=== PATIENT | male | born 1945 | race Caucasian/White ===

== ENCOUNTER → 2018-05-22 07:47 | Outpatient (CLI) | payer MEDICARE, OTHER, SELFPAY ==
--- NOTE | 2018-05-22 | CI_ITS ---
Cerebrovascular Exam Indications: 780.4 Dizziness and giddiness. IMPRESSIONS 1. The bilateral vertebral arteries are patent with normal antegrade flow. 2. Study suggests 20-49% stenosis involving the right internal carotid artery. 3. Study suggests less than 20% stenosis involving the left internal carotid artery. History: Risk factors: Hypertension. Diabetes mellitus. Carotid duplex study. Complete study and Doppler flow study including spectral analysis, color and zhang scale imaging. Height: Height: 188cm. Height: 74in. Weight: Weight: 101.2kg. Weight: 222.5lb. Body mass index: BMI: 28.6kg/m^2. Body surface area: BSA: 2.32m^2. Location: Vascular laboratory. Patient status: Outpatient. Tables: Arterial flow: + +--------+--------+ Location V sys V ed + +--------+--------+ Right CCA - proximal 88cm/s 18.2cm/s + +--------+--------+ Right CCA - distal 64.7cm/s 20.1cm/s + +--------+--------+ Right ECA 67.8cm/s -------- + +--------+--------+ Right ICA - proximal 47.1cm/s 17cm/s + +--------+--------+ Right ICA - mid 73.2cm/s 30cm/s + +--------+--------+ Right ICA - distal 56.5cm/s 19.6cm/s + +--------+--------+ Right vertebral 44.7cm/s -------- + +--------+--------+ Left CCA - proximal 82.5cm/s 16.7cm/s + +--------+--------+ Left CCA - distal 46.2cm/s 15.2cm/s + +--------+--------+ Left ECA 89.4cm/s -------- + +--------+--------+ Left ICA - proximal 50.1cm/s 20.6cm/s + +--------+--------+ Left ICA - mid 75.6cm/s 27cm/s + +--------+--------+ Left ICA - distal 79.6cm/s 25.5cm/s + +--------+--------+ Left vertebral 31.9cm/s -------- + +--------+--------+ Velocity ratios: + + + + + + Right, V sys Right, V ed Left, V sys Left, V ed + + + + + + Max ICA/dist CCA 1.13 1.49 1.72 1.78 + + + + + + (Report amended ) Electronically signed by: Hank Melissa [id number]
== END ==
PROVIDERS: PCP Family Medicine; Visit Provider Nurse Practitioner Family
DX: R42 Dizziness and giddiness (principal); I10 Essential (primary) hypertension; E78.5 Hyperlipidemia, unspecified; I25.10 Atherosclerotic heart disease of native coronary artery without angina pectoris; H53.8 Other visual disturbances
CPT/HCPCS: 93880

== ENCOUNTER 2018-06-08 15:05 | Emergency (ER) | payer MEDICARE, OTHER, SELFPAY ==
[2018-06-08 15:10] VITALS: BP 146/84; PULSE 77; RESP 22; TEMP 36.9; O2SAT 100; BMI 28.8
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
--- NOTE | 2018-06-08 15:39 | PC.NURSE ---
1508- TRAUMA ALERT CALLED 1515- TRAUMA ALERT CANCELLED PER DR COTTER
--- NOTE | 2018-06-08 15:40 | PC.NURSE ---
PT TO CT
[2018-06-08 15:52] LABS: Anion Gap 12.5 mEq/L (5-15); Blood Urea Nitrogen 25 mg/dL (7-18); Calcium 9.6 mg/dL (8.5-10.1); Carbon Dioxide 28 mmol/L (21.0-32.0); Chloride 101 mmol/L (98-107); Creatinine Clearance Estimated 77 mL/min (50-200); Creatinine,Serum 1.29 mg/dL (0.70-1.30); Estimated Glomerular Filt Rate 55 ml/min (>60); GFR (African American) 67 ML/MIN (>60); Glucose 127 mg/dL (74-106); Potassium 3.5 mmoL/L (3.5-5.1); Sodium 138 mmol/L (136-145)
[2018-06-08 16:06] LABS: Basophils % 0.3 % (0.1-2.0); Eosinophils # 0.1 K/mm3 (0.0-0.4); Eosinophils % 0.9 % (0.1-12.0); Hematocrit 46.8 % (42.0-52.0); Hemoglobin 15.8 g/dL (14.1-18.0); Lymphocytes # 1.6 K/mm3 (0.7-4.5); Lymphocytes % 13.1 % (10-50); Mean Corpuscular HGB Conc 33.8 g/dL (31.8-35.4); Mean Corpuscular Hemoglobin 30.2 pg (27.0-31.2); Mean Corpuscular Volume 89.3 fl (80-94); Mean Platelet Volume 7.1 fl (7.4-10.4); Monocytes # 0.5 K/mm3 (0.1-1.0); Monocytes % 3.9 % (1.7-9.3); Neutrophils # 10.1 K/mm3 (1.8-7.8); Neutrophils % 81.8 % (37.0-80.0); Platelet Count 257 K/mm3 (142-424); Red Blood Count 5.24 M/mm3 (4.60-6.20); White Blood Count 12.4 K/mm3 (4.8-10.8)
[2018-06-08 16:10] VITALS: BP 139/83; PULSE 66; O2SAT 96
[2018-06-08 16:42] VITALS: BP 147/75; PULSE 61; O2SAT 97
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
[2018-06-08 17:02] VITALS: BP 145/83; PULSE 64; O2SAT 97
[2018-06-08 17:34] VITALS: BP 126/66; PULSE 75; RESP 18; TEMP 36.6; O2SAT 100
[2018-06-08 17:35] VITALS: BP 139/83; PULSE 69; O2SAT 96
== END 2018-06-08 17:46 | disposition home or self-care (01) ==
PROVIDERS: Emergency Provider Emergency Medicine; PCP Family Medicine
DX: S40.011A Contusion of right shoulder, initial encounter (principal); S10.93XA Contusion of unspecified part of neck, initial encounter; S01.312A Laceration without foreign body of left ear, initial encounter; V86.05XA Driver of 3- or 4- wheeled all-terrain vehicle (ATV) injured in traffic accident, initial encounter; Y92.488 Other paved roadways as the place of occurrence of the external cause; S61.412A Laceration without foreign body of left hand, initial encounter
CPT/HCPCS: 12011; 70450; 71045; 71275; 72125; 72170; 73020; 74177; 80048; 85025; 99283; Q9967

== ENCOUNTER → 2018-06-09 16:04 | Outpatient (CLI) | payer MEDICARE, OTHER, SELFPAY ==
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
== END ==
PROVIDERS: PCP Family Medicine; Visit Provider Nurse Practitioner Family
DX: S89.92XA Unspecified injury of left lower leg, initial encounter (principal)
CPT/HCPCS: 73562

== ENCOUNTER 2018-07-20 08:30 | Outpatient (RCR) | payer MEDICARE, OTHER, SELFPAY ==
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
== END 2018-07-20 08:35 | disposition home or self-care (01) ==
LOC: PT 08:30
PROVIDERS: Visit Provider Nurse Practitioner Family
DX: S13.4XXD Sprain of ligaments of cervical spine, subsequent encounter (principal); M54.2 Cervicalgia
CPT/HCPCS: 97010; 97014; 97110; 97163; G0283

== ENCOUNTER 2019-11-15 17:56 | Observation (INO) | payer MEDICARE, OTHER, SELFPAY ==
[2019-11-15] VITALS (8 sets, daily range): BP systolic 111–150; BP diastolic 54–85; PULSE 50–81; RESP 16–18; TEMP 36.6–36.7; O2SAT 91–100; BMI 28.2; BMI 27.6
--- NOTE | 2019-11-15 18:04 | CT_ITS ---
Procedure: CT ANGIO ABDOMEN PELVIS CLINICAL HISTORY: abd pain, known 5x5 infrarenal anneurysm There epigastric pain with nausea and vomiting, known aneurysm COMPARISON: CT ABDPELW CT abdomen pelvis w con from 06/08/2018 TECHNIQUE: IV Contrast: 100ml Optiray 350 Axial images obtained with sagittal and coronal reformats. All CT scans at the facility use one or more dose reduction, viz: automated exposure control, ma/kV adjustment per patient size (including targeted exams where dose is matched to indication, i.e. head), or iterative reconstruction technique. FINDINGS: There is a fusiform infrarenal abdominal aortic aneurysm measuring 5 cm transverse and 5.3 cm AP overall not significantly changed. No evidence of acute retroperitoneal hemorrhage. The aneurysm begins 4.8 cm below the level of the renal arteries extending inferiorly for length 7.8 cm and does not involve the aortic bifurcation. There are 3 renal arteries on each side. No significant stenosis of the celiac or SMA. The JAMARI is patent. There is mild dilatation of the proximal common iliacs 1.6 cm on the right and left. There is no evidence of aortic dissection. No acute retroperitoneal hemorrhage is apparent. Incidental findings: Coronary artery calcification, prior CABG. Mild gynecomastia. Cholelithiasis with mildly distended gallbladder. Mild thickening of the distal esophagus. There is mild thickening of the descending and sigmoid colon which could be due to nondistention or colitis with a mild amount of retained colonic feces. Motion artifact does somewhat obscure fine detail in the mid abdominal region fecal appearing material within the distal small bowel suggests stasis. IMPRESSION: 1. Fusiform infrarenal abdominal aortic aneurysm measuring 5 x 5.3 cm not significantly changed. No evidence of acute retroperitoneal hemorrhage. 2. Distended gallbladder with gallstone 3. Moderate amount of retained colonic feces with possible colitis Dictated by: Hank Melissa MD 11/16/2019 06:29 Hank Melissa MD in [facility] 11/16/2019 06:29
--- NOTE | 2019-11-15 18:32 | HMH.EDABDPAI ---
ED Disposition Clinical Impression: Gallbladder disease Nausea and vomiting Qualifiers: Vomiting type: unspecified Vomiting Intractability: non-intractable Qualified Code(s): R11.2 - Nausea with vomiting, unspecified Disposition: Home, Self-Care Condition on Discharge: Fair Instructions: DI for Acute Abdomen Referrals: Keegan Buchanan MD [Primary Care Provider] - Time of Disposition: 20:19 - Critical Care Critical Care Time: No Attestation: On 11/15/19, the high probability of a clinically significant, sudden or life threatening deterioration of the following system(s) required my full and direct attention, intervention and personal management. The time I documented below is in addition to time spent performing reported procedures but includes the following listed in this critical care notation. Medical Decision Making - Medical Records Medical records reviewed: Yes: I reviewed the patient's medical records. - [place] Inquiry Pt receiving controlled substance: No Vital Signs: 11/15/19 18:10 11/15/19 19:00 Temperature 97.8 F Temperature Source Oral Pulse Rate [Right Brachial] 61 53 L Respiratory Rate 18 18 Blood Pressure [Right Arm] 131/64 131/79 Blood Pressure Mean [Right Arm] 86 96 Blood Pressure Source [Right Arm] Automatic Cuff Blood Pressure Position [Right Arm] Sitting 02 Sat by Pulse Oximetry 91 L 98 Oxygen Delivery Method Room Air Room Air - Lab Data Lab Results 11/15/19 18:58: WBC 11.5 H, RBC 5.16, Hgb 14.7, Hct 48.0, MCV 92.9, MCH 28.5, MCHC 30.7 L, RDW 13.2, Plt Count 270, MPV 7.5, Neut % (Auto) 80.9 H, Lymph % (Auto) 14.1, [place] % (Auto) 3.6, Eos % (Auto) 0.9, Baso % (Auto) 0.4, Neut # (Auto) 9.3 H, Lymph # (Auto) 1.6, [place] # (Auto) 0.4, Eos # (Auto) 0.1, Baso # (Auto) 0.0 11/15/19 18:58: Sodium 143, Potassium 3.5, Chloride 101, Carbon Dioxide 32 H, Anion Gap 13.5, BUN 16, Creatinine 1.20, Estimated Creat Clear 79, Estimated GFR 60, Est GFR ( Amer) 72, Glucose 184 H, Calcium 10.3 H, Total Bilirubin 0.6, AST 28, ALT 22, Alkaline Phosphatase 59, Total Protein 7.2, Albumin 4.8, Globulin 2.4, Albumin/Globulin Ratio 2.0 H, Lipase 37 11/15/19 18:58: Lactate 2.2 H Result diagrams: 11/15/19 18:58 11/15/19 18:58 Orders (Tests/Meds): ED MEDICATIONS Generic Name Dose Route Start Last Admin Trade Name Freq PRN Reason Stop Dose Admin Piperacillin Sod/Tazobactam 50 mls @ 100 mls/hr 11/15/19 20:00 Sod 3.375 gm/ Sodium Chloride IV 11/29/19 19:59 Q6H NENA Protocol Discontinued Medications Generic Name Dose Route Start Last Admin Trade Name Freq PRN Reason Stop Dose Admin Ioversol 100 ml 11/15/19 19:16 11/15/19 19:17 Ioversol-350 (74%) 100ml Vial IV 11/15/19 19:17 100 ml ONCE ONE Administration Protocol Morphine Sulfate 4 mg 11/15/19 18:39 11/15/19 19:22 Morphine 4mg/Ml Syringe IV 11/15/19 18:40 4 mg ONCE ONE Administration Ondansetron HCl 4 mg 11/15/19 18:38 11/15/19 19:22 Ondansetron 4mg/2ml Vial IV 11/15/19 18:39 4 mg ONCE ONE Administration Sodium Chloride 10 ml 11/15/19 19:16 11/15/19 19:17 Sodium Chloride 0.9% 10ml Syr (Rad Only) IV 11/15/19 19:17 10 ml ONCE ONE Administration Sodium Chloride 50 ml 11/15/19 19:16 11/15/19 19:17 0.9 % Sodium Chloride 50 Ml Vial IV 11/15/19 19:17 50 ml ONCE ONE Administration ORDERS Category Date Time Status CT angio abdomen pelvis Stat Cat Scan 11/15/19 18:04 Taken Medical Decision Narrative: In summary this is a 74-year-old male with history of infrarenal abdominal aneurysm presenting to the emergency department with abdominal pain, nausea, vomiting. Patient clinically stable on arrival, though he does appear uncomfortable. Concern for ruptured aneurysm. Will obtain CT angiography of the abdomen and pelvis. Patient given 4 mg of IV Zofran, IV fluids, IV morphine Initial laboratory results show a lactate of 2.2. Will obtain repeat lactate. Sil
[2019-11-15 19:09] LABS: Basophils % 0.4 % (0.1-2.0); Eosinophils # 0.1 K/mm3 (0.0-0.4); Eosinophils % 0.9 % (0.1-12.0); Hemoglobin 14.7 g/dL (14.1-18.0); Lymphocytes # 1.6 K/mm3 (0.7-4.5); Lymphocytes % 14.1 % (10-50); Mean Corpuscular HGB Conc 30.7 g/dL (31.8-35.4); Mean Corpuscular Hemoglobin 28.5 pg (27.0-31.2); Mean Corpuscular Volume 92.9 fl (80-94); Mean Platelet Volume 7.5 fl (7.4-10.4); Monocytes # 0.4 K/mm3 (0.1-1.0); Monocytes % 3.6 % (1.7-9.3); Neutrophils # 9.3 K/mm3 (1.8-7.8); Neutrophils % 80.9 % (37.0-80.0); Platelet Count 270 K/mm3 (142-424); Red Blood Count 5.16 M/mm3 (4.60-6.20); Red Cell Distribution Width 13.2 % (11.5-17.5); White Blood Count 11.5 K/mm3 (4.8-10.8)
[2019-11-15 19:18] LABS: Chloride 101 mmol/L (98-107); Potassium 3.5 mmoL/L (3.5-5.1); Sodium 143 mmol/L (136-145)
[2019-11-15 19:20] LABS: Alanine Aminotransferase 22 U/L (12-78); Aspartate Amino Transferase 28 U/L (17-59); Blood Urea Nitrogen 16 mg/dl (9-20); Creatinine Clearance Estimated 79 mL/min (50-200); Estimated Glomerular Filt Rate 60 ml/min (>60); GFR (African American) 72 ML/MIN (>60)
[2019-11-15 19:21] LABS: Albumin Level 4.8 g/dl (3.5-5.0); Alkaline Phosphatase 59 U/L (38-126); Anion Gap 13.5 mEq/L (5-15); Bilirubin,Total 0.6 mg/dl (0.2-1.3); Calcium 10.3 mg/dl (8.4-10.2); Carbon Dioxide 32 mmol/L (22.0-30.0); Globulin 2.4 g/dL (1.3-3.2); Glucose 184 mg/dl (74-100); Lipase 37 U/L (23-300); Total Protein,Serum 7.2 g/dl (6.3-8.2)
[2019-11-15 19:34] LABS: Lactic Acid 2.2 mmol/L (0.7-2.1)
--- NOTE | 2019-11-15 20:02 | PC.NURSE ---
call placed out for dr palmer coverage. it will be dr anglin who responds.
[2019-11-15 21:37] LABS: Coronavirus 19 IgG Antibody Negative (Negative)
[2019-11-15 21:38] LABS: Coronavirus 19 IgM Antibody Negative (Negative)
--- NOTE | 2019-11-15 22:05 | DIET.NUTRFU ---
patient up to floor via wheelchair
[2019-11-15 23:03] LABS: Reflex Lactic Add Lactic Reflex
[2019-11-15 23:33] LABS: Lactic Acid Follow Up (RFLX 1) 1.2 mmol/L (0.7-2.1)
[2019-11-16 04:00] VITALS: BP 157/82; PULSE 96; RESP 18; TEMP 37.6; O2SAT 97
[2019-11-16 05:05] VITALS: BMI 27.7
[2019-11-16 06:06] LABS: Basophils % 0.3 % (0.1-2.0); Eosinophils # 0.1 K/mm3 (0.0-0.4); Hematocrit 47.5 % (42.0-52.0); Hemoglobin 15.1 g/dL (14.1-18.0); Lymphocytes # 0.9 K/mm3 (0.7-4.5); Lymphocytes % 7.5 % (10-50); Mean Corpuscular HGB Conc 31.9 g/dL (31.8-35.4); Mean Corpuscular Hemoglobin 29.9 pg (27.0-31.2); Mean Corpuscular Volume 93.7 fl (80-94); Mean Platelet Volume 7.4 fl (7.4-10.4); Monocytes # 0.7 K/mm3 (0.1-1.0); Monocytes % 5.9 % (1.7-9.3); Neutrophils # 10.7 K/mm3 (1.8-7.8); Neutrophils % 85.4 % (37.0-80.0); Platelet Count 215 K/mm3 (142-424); Red Blood Count 5.06 M/mm3 (4.60-6.20); Red Cell Distribution Width 12.9 % (11.5-17.5); White Blood Count 12.5 K/mm3 (4.8-10.8)
[2019-11-16 06:11] LABS: Chloride 100 mmol/L (98-107); Sodium 142 mmol/L (136-145)
[2019-11-16 06:12] LABS: Potassium 4.4 mmoL/L (3.5-5.1)
[2019-11-16 06:14] LABS: Blood Urea Nitrogen 15 mg/dl (9-20); Creatinine Clearance Estimated 77 mL/min (50-200); Estimated Glomerular Filt Rate 60 ml/min (>60); GFR (African American) 72 ML/MIN (>60)
[2019-11-16 06:15] LABS: Anion Gap 15.4 mEq/L (5-15); Calcium 10.1 mg/dl (8.4-10.2); Carbon Dioxide 31 mmol/L (22.0-30.0); Glucose 154 mg/dl (74-100)
[2019-11-16 06:16] LABS: Lactic Acid 2.3 mmol/L (0.7-2.1)
[2019-11-16 06:21] LABS: MANUAL DIFFERENTIAL MANUAL DIFFERENTIAL (MANUAL DIFF)
--- NOTE | 2019-11-16 06:45 | PC.NURSE ---
pt has slept off and on tonight,medicated x 1 with morphine for abd.pain and x1 for nausea,fsbs was 140,rechecked pt temp and it was 99.3 orally,will let day shift know.bowel sounds x4 quads and lungs clear to ascultate throughtout. resp.even and unlabored.consult with lyle today
[2019-11-16 07:09] LABS: POC Glucose,Bedside 140 (70-110)
--- NOTE | 2019-11-16 07:10 | HMH.GSCON ---
*Admission Date: 11/15/19 *Reason for consult:: Gallbladder disease *History of present illness: This is a 74-year-old gentleman who presented overnight to the emergency department with increasing upper abdominal pain and nausea. A CT scan revealed gallstones and a distended gallbladder. The surgical service was consulted for evaluation. No fevers. No jaundice. He does have a 5 x 5.3 cm abdominal aortic aneurysm and is being followed by Dr. Eagle at [facility] in [place]. Review of Systems - Constitutional Denies chills - Eyes Denies change in vision - ENT Denies difficulty swallowing - *Cardiovascular Denies chest pain - *Respiratory Denies wheezing - *Gastrointestinal Reports abdominal pain - *Genitourinary Denies blood in urine - *Musculoskeletal Denies deformity - Integumentary/Breasts Denies new lesions - *Neurologic Denies headache(s), Denies numbness, Denies fainting - Psychiatric Denies anxiety - Endocrine Denies cold intolerance - Hematologic/Lymphatic Denies easy bleeding - Allergic/Immunologic Denies throat swelling [facility] History Medical History: Reports:: Aneurysm (ABDOMIAL), Diabetes Mellitus Type 2, Hyperlipidemia, Hypertension, Myocardial Infarction *Have you ever received a pneumonia vaccine?: No *Have you received a flu vaccine this season?: No Other Surgeries: Yes: Coronary Stent Amputation: No Fractures: No - *Social History Last grade of school completed: Some college Smoking Status: Former smoker Tobacco Type: smokeless tobacco # Packs/Day (cigarettes): 1 #Yrs smoked (if former smoker): 41 Smoking End Date: JUN 21 2001 Alcohol Intake: never *Occupational Status:: retired Housing: house Household Members: spouse *Travel in the last 8 weeks: None Family Hx:: Non-contributory Meds Home Medications Medication Instructions Recorded Confirmed Type Amlodipine Besylate/Benazepril 1 tab PO DAILY 05/16/18 11/16/19 History [Amlodipine-Benazepril 10-20 mg] Aspirin [Aspir 81] 81 mg PO HS 05/16/18 11/16/19 History Chlorthalidone 1 tab PO DAILY 05/16/18 11/16/19 History Empagliflozin [Jardiance] 10 mg PO DAILY 05/16/18 11/16/19 History Meclizine HCl [Meclizine 12.5mg 25 mg PO ONCE 05/16/18 11/16/19 History Tab] Metformin HCl [Metformin HCl ER] 1 tab PO AC 05/16/18 11/16/19 History Metformin HCl [Metformin HCl ER] 1,000 mg PO HS 05/16/18 11/16/19 History Pantoprazole Sodium [Protonix 40mg 40 mg PO DAILY 05/16/18 11/16/19 History tablet] Simvastatin 40 mg PO HS 05/16/18 11/16/19 History Allergies Allergy/AdvReac Type Severity Reaction Status Date / Time No Known Allergies Allergy Verified 05/16/18 01:25 Exam Vital signs and Labs for Last 24 Hours: Temp Pulse Resp BP Pulse Ox 99.6 F 96 H 18 157/82 H 97 11/16/19 04:00 11/16/19 04:00 11/16/19 04:00 11/16/19 04:00 11/16/19 04:00 Laboratory Results - last 24 hr 11/15/19 18:58: WBC 11.5 H, RBC 5.16, Hgb 14.7, Hct 48.0, MCV 92.9, MCH 28.5, MCHC 30.7 L, RDW 13.2, Plt Count 270, MPV 7.5, Neut % (Auto) 80.9 H, Lymph % (Auto) 14.1, [place] % (Auto) 3.6, Eos % (Auto) 0.9, Baso % (Auto) 0.4, Neut # (Auto) 9.3 H, Lymph # (Auto) 1.6, [place] # (Auto) 0.4, Eos # (Auto) 0.1, Baso # (Auto) 0.0 11/15/19 18:58: Sodium 143, Potassium 3.5, Chloride 101, Carbon Dioxide 32 H, Anion Gap 13.5, BUN 16, Creatinine 1.20, Estimated Creat Clear 79, Estimated GFR 60, Est GFR ( Amer) 72, Glucose 184 H, Calcium 10.3 H, Total Bilirubin 0.6, AST 28, ALT 22, Alkaline Phosphatase 59, Total Protein 7.2, Albumin 4.8, Globulin 2.4, Albumin/Globulin Ratio 2.0 H, Lipase 37 11/15/19 18:58: Lactate 2.2 H 11/15/19 18:58: SARS-CoV-2 IgG Ab (Rapid) Negative, SARS-CoV-2 IgM Ab (Rapid) Negative 11/15/19 23:15: Lactate 1.2 11/16/19 05:30: WBC 12.5 H, RBC 5.06, Hgb 15.1, Hct 47.5, MCV 93.7, MCH 29.9, MCHC 31.9, RDW 12.9, Plt Count 215, MPV 7.4, Neut % (Auto) 85.4 H, Lymph % (Auto) 7.5 L, [place] % (Auto) 5.9, Eos % (Auto)
[2019-11-16 08:00] VITALS: BP 150/63; PULSE 76; RESP 18; TEMP 37.1; O2SAT 96
--- NOTE | 2019-11-16 08:05 | HMH.HPDC ---
General - General Admission date:: 11/15/19 *Admission Date: 11/15/19 *Chief complaint: Abdominal pain *History of present illness: 74-year-old male admitted to the to the hospital yesterday evening after presenting to the emergency department approximately 3 hours after he last ate with onset of epigastric abdominal pain, feeling flushed with nausea. Patient has a known infrarenal abdominal aortic aneurysm and CT scan was rapidly performed. Aneurysm was stable but patient was found to have a distended gallbladder filled with gallstones. White count was mildly elevated at 11,500. Patient was felt to have acute on chronic cholecystitis and started on Zosyn and admitted for surgical consultation. Patient's abdominal aortic aneurysm has been stable for the last 3 years. Patient's vascular surgeon is Dr.Warner Smith. [facility] History I have reviewed the patient's past medical history: Yes Medical History: Reports:: Aneurysm (ABDOMIAL), Diabetes Mellitus Type 2, Hyperlipidemia, Hypertension, Myocardial Infarction *Have you ever received a pneumonia vaccine?: No *Have you received a flu vaccine this season?: No Other Surgeries: Yes: Coronary Stent Amputation: No Fractures: No - *Social History Last grade of school completed: Some college Smoking Status: Former smoker Tobacco Type: smokeless tobacco # Packs/Day (cigarettes): 1 #Yrs smoked (if former smoker): 41 Smoking End Date: JUN 21 2001 Alcohol Intake: never *Occupational Status:: retired Housing: house Household Members: spouse *Travel in the last 8 weeks: None Family Hx:: Non-contributory Review of Systems - Constitutional Reports malaise, Denies chills - *Cardiovascular Denies chest pain, Denies chest pain at rest - *Respiratory Denies change in phlegm color, Denies chest congestion, Denies cough - *Gastrointestinal Reports abdominal pain, Reports heartburn, Denies vomiting - *Musculoskeletal Denies abnormal walking, Denies joint pain - *Neurologic Denies headache(s), Denies numbness, Denies fainting Exam Vital signs and Labs for Last 24 Hours: Temp Pulse Resp BP Pulse Ox 99.6 F 96 H 18 157/82 H 97 11/16/19 04:00 11/16/19 04:00 11/16/19 04:00 11/16/19 04:00 11/16/19 04:00 Laboratory Results - last 24 hr 11/15/19 18:58: WBC 11.5 H, RBC 5.16, Hgb 14.7, Hct 48.0, MCV 92.9, MCH 28.5, MCHC 30.7 L, RDW 13.2, Plt Count 270, MPV 7.5, Neut % (Auto) 80.9 H, Lymph % (Auto) 14.1, [place] % (Auto) 3.6, Eos % (Auto) 0.9, Baso % (Auto) 0.4, Neut # (Auto) 9.3 H, Lymph # (Auto) 1.6, [place] # (Auto) 0.4, Eos # (Auto) 0.1, Baso # (Auto) 0.0 11/15/19 18:58: Sodium 143, Potassium 3.5, Chloride 101, Carbon Dioxide 32 H, Anion Gap 13.5, BUN 16, Creatinine 1.20, Estimated Creat Clear 79, Estimated GFR 60, Est GFR ( Amer) 72, Glucose 184 H, Calcium 10.3 H, Total Bilirubin 0.6, AST 28, ALT 22, Alkaline Phosphatase 59, Total Protein 7.2, Albumin 4.8, Globulin 2.4, Albumin/Globulin Ratio 2.0 H, Lipase 37 11/15/19 18:58: Lactate 2.2 H 11/15/19 18:58: SARS-CoV-2 IgG Ab (Rapid) Negative, SARS-CoV-2 IgM Ab (Rapid) Negative 11/15/19 23:15: Lactate 1.2 11/16/19 05:30: WBC 12.5 H, RBC 5.06, Hgb 15.1, Hct 47.5, MCV 93.7, MCH 29.9, MCHC 31.9, RDW 12.9, Plt Count 215, MPV 7.4, Neut % (Auto) 85.4 H, Lymph % (Auto) 7.5 L, [place] % (Auto) 5.9, Eos % (Auto) 1.0, Baso % (Auto) 0.3, Neut # (Auto) 10.7 H, Lymph # (Auto) 0.9, [place] # (Auto) 0.7, Eos # (Auto) 0.1, Baso # (Auto) 0.0 11/16/19 05:30: Sodium 142, Potassium 4.4 D, Chloride 100, Carbon Dioxide 31 H, Anion Gap 15.4 H, BUN 15, Creatinine 1.20, Estimated Creat Clear 77, Estimated GFR 60, Est GFR ( Amer) 72, Glucose 154 H, Calcium 10.1 11/16/19 05:30: Lactate 2.3 H 11/16/19 06:57: POC Glucose 140 H I & O for Last 24 hours: Intake & Output 11/13/19 11/14/19 11/15/19 11/16/19 11:59 11:59 11:59 11:59 Intake Total 484 / 484 Balance 484 / 484 Weight 216 lb 5 oz - *Routine HEENT Exam Head: Present: normocephalic
[2019-11-16 08:42] LABS: Lymphocytes % 9 % (10-50); Monocytes % 4 % (2-9); Neutrophils % 87 % (42-76); Platelet Estimate Normal; RBC Morphology Normal; Total Cells Counted 100
--- NOTE | 2019-11-16 09:20 | HMH.PHAVTE ---
[facility] Pharmacy VTE Monitoring - Patient Demographics Admission date: 11/16/19 Report Date: 11/16/19 Time: :20 Allergies/Adverse Reactions: Patient Allergies No Known Allergies Allergy (Verified 05/16/18 01:25) Height: 1.88 m Weight: 98.118 kg Patient Problems: Current Active Problems Nausea and vomiting (Acute) Gallbladder disease (Acute) AAA (abdominal aortic aneurysm) (Chronic) Acute and chronic cholecystitis (Acute) Diabetes mellitus type 2, controlled (Chronic) - VTE Risk Labs: VTE Related Lab Results Hgb 15.1 g/dL (14.1-18.0) 11/16/19 05:30 Hct 47.5 % (42.0-52.0) 11/16/19 05:30 Plt Count 215 K/mm3 (142-424) 11/16/19 05:30 BUN 15 mg/dl (9-20) 11/16/19 05:30 Creatinine 1.20 mg/dl (0.66-1.25) 11/16/19 05:30 Estimated Creat Clear 77 mL/min (50-200) 11/16/19 05:30 Was VTE Risk Assessment Performed: Yes VTE Score: 7 VTE Risk Level: Moderate Risk Clinical Trial Participant: No - Prophylaxis VTE Prophylaxis Ordered?: Yes Types of VTE Prophylaxis: TEDS Knee High
--- NOTE | 2019-11-16 09:25 | HMH.PHAINT ---
HOME MEDICATION LIST CLARIFIED USING LIST FROM [facility]
[2019-11-16 14:08] LABS: POC Glucose,Bedside 165 (70-110)
[2019-11-16 15:10] VITALS: BP 148/68; PULSE 75; RESP 17; TEMP 36.8; O2SAT 97
== END 2019-11-16 15:30 ==
LOC: ER 19:19 → 2ND 20:19
PROVIDERS: Admitting Provider Family Medicine; Emergency Provider Emergency Medicine; PCP Family Medicine; Visit Provider Family Medicine
DX: K81.2 Acute cholecystitis with chronic cholecystitis (principal); I71.4 Abdominal aortic aneurysm, without rupture; I25.2 Old myocardial infarction; I11.0 Hypertensive heart disease with heart failure; E78.5 Hyperlipidemia, unspecified; E11.9 Type 2 diabetes mellitus without complications; Z79.84 Long term (current) use of oral hypoglycemic drugs; Z95.5 Presence of coronary angioplasty implant and graft; Z79.82 Long term (current) use of aspirin; Z79.899 Other long term (current) drug therapy
CPT/HCPCS: 36415; 74174; 80048; 80053; 82962; 83605; 83690; 85007; 85025; 86328; 87040; 96365; 96375; 99284; G0378; J2405; J2543; Q9967

== ENCOUNTER → 2020-02-18 15:43 | Outpatient (CLI) | payer MEDICARE, OTHER, SELFPAY | PROVIDERS: PCP Family Medicine; Visit Provider Family Medicine | DX: Z20.822 Contact with and (suspected) exposure to COVID-19 (principal); U07.1 COVID-19 | CPT/HCPCS: U0003 ==

== ENCOUNTER → 2021-01-15 15:32 | Outpatient (CLI) | payer MEDICARE, OTHER, SELFPAY | PROVIDERS: PCP Family Medicine; Visit Provider Nurse Practitioner | DX: Z20.822 Contact with and (suspected) exposure to COVID-19 (principal) | CPT/HCPCS: C9803; U0003; U0005 ==

== ENCOUNTER → 2022-04-26 09:24 | Outpatient (CLI) | payer MEDICARE, OTHER, SELFPAY ==
--- NOTE | 2022-04-26 09:29 | XR_ITS ---
FINAL REPORT CLINICAL HISTORY: Foot Pain FINDINGS: RIGHT FOOT 3 views of the right foot were obtained. There is no acute fracture or dislocation. There are moderate hypertrophic changes of the 1st MTP joint with subchondral sclerosis. A small plantar spur is noted. Soft tissues are without acute abnormality. IMPRESSION: Moderate degenerative changes of the 1st MTP joint with subchondral sclerosis. No acute bony abnormality. Reviewed, Interpreted and Dictated by Micah Polanco MD Transcribed by Radha Barker Authenticated and [facility]
--- NOTE | 2022-04-26 09:29 | XR_ITS ---
FINAL REPORT CLINICAL HISTORY: Left Foot Pain FINDINGS: LEFT FOOT Three views of the left foot demonstrate no acute fracture or dislocation. There are mild hypertrophic changes of the 1st MTP joint. A small plantar calcaneal spur is seen. Soft tissues are without acute abnormality. IMPRESSION: Mild hypertrophic changes of the 1st MTP joint. No acute bony abnormality. Reviewed, Interpreted and Dictated by Micah Polanco MD Transcribed by Radha Barker Authenticated and [facility]
== END ==
PROVIDERS: PCP Family Medicine; Visit Provider Nurse Practitioner Family
DX: M79.672 Pain in left foot (principal); M79.671 Pain in right foot
CPT/HCPCS: 73630

== ENCOUNTER 2022-09-28 09:00 | Outpatient (RCR) | payer MEDICARE, OTHER, SELFPAY ==
--- NOTE | 2022-09-01 15:47 | HMH.PTOPEV ---
PT Outpatient Evaluation Rehab PT Outpatient Evaluation Start: 09/01/22 15:35 Freq: Status: Active Protocol: Document 09/01/22 15:35 BRANDI (Rec: 09/01/22 15:47 BRANDI [id number]) E-signed By Raymond Dominguez, PT Outpatient Therapy Subjective History Subjective History Patient is a 76 year old male presenting to outpatient PT with reports of sub-acute L heel pain starting approx 2 months ago of insidious onset. Symptoms consistent with achilles tendinitis. No recent imaging to report. Comorbidities include hx of open heart sx, dilia, AAA, HTN , HL, diabetes and L TKA. Chief Complaint Pain Symptom Type Sharp,Burning Symptoms Relieved By Rest/Positioning Prior Functional Limitations None Current Functional Limitations Housework,Standing,Walking, Stairs,Balance Symptom Description Intermittent Level of pain today (0-10) 2 Pain scale - at its best (0-10) 0 Pain scale - at its worst (0-10) 7 Ankle/Foot Eval Gait Observation General Gait Pattern Observation Antalgic Gait,Decrease Weight Bear (L) Palpation Tenderness left Ankle/Foot Palpation Findings Tenderness Ankle/Foot Palpation Overall Comment mid-sub/distal achilles insertion ROM Ankle/Foot Dorsiflexion w/Knee Extended 9 Active Range Motion (degrees) Ankle/Foot Plantar Flexion Active Range 49 of Motion (degrees) Ankle/Foot Eversion Active Range of 9 Motion (degrees) Ankle/Foot Inversion Active Range of 13 Motion (degrees) Ankle/Foot ROM Limitations Soft Tissue Tightness Great Toe ROM Reason Not Measured Within Functional Limits MMT Ankle Dorsiflexion Strength Grade 5 Normal Ankle Plantarflexion Strength Grade 4 Good Foot Eversion Strength Grade 5 Normal Foot Inversion Strength Grade 5 Normal Special Tests Ankle Anterior Drawer Test Negative Left Foot Interdigital Neuroma Test Negative Left Outpatient Therapy Assessment Impairments Problems/Impairmments Palpation Tenderness,Impaired Range of Motion,Impaired Walking,Impaired Standing, Impaired Household Care, Impaired Stair Climbing, Impaired Incline Stepping, Impaired Stepping on Uneven Surface,Impaired Squatting,
== END 2022-09-28 09:05 | disposition home or self-care (01) ==
LOC: PT 09:00
PROVIDERS: PCP Family Medicine; Visit Provider Podiatrist
DX: M76.62 Achilles tendinitis, left leg (principal); M79.672 Pain in left foot
CPT/HCPCS: 97010; 97014; 97035; 97110; 97163; G0283

== ENCOUNTER → 2022-12-09 08:49 | Outpatient (CLI) | payer MEDICARE, OTHER, SELFPAY ==
--- NOTE | 2022-12-09 08:53 | CT_ITS ---
FINAL REPORT CLINICAL HISTORY: PELVIC AND PERINEAL PAIN COMPARISON: None FINDINGS: CT OF THE ABDOMEN AND PELVIS WITH CONTRAST Axial CT images of the abdomen and pelvis were obtained after the administration of oral and iv contrast. Coronal reformatted images were also obtained and reviewed.This study was performed with techniques to keep radiation doses as low as reasonably achievable (ALARA). Individualized dose reduction techniques using automated exposure control or adjustment of mA and/or kV according to the patient's size were employed. Abdomen: The lung bases are clear. The heart is normal in size. The liver has an unremarkable appearance, without evidence of mass or biliary ductal dilatation. Post cholecystectomy. There is mild biliary ductal dilatation favored to be post cholecystectomy change. The spleen is unremarkable. No adrenal mass is present. The pancreas has an unremarkable appearance. There is moderate left renal atrophy, worse compared to prior. There are postoperative changes from placement of aortic stent graft which is patent. There is no free fluid or adenopathy. No mass or abnormal fluid collection is seen. Pelvis: The appendix normal. There is mild bladder wall thickening, likely inflammatory. No inflammatory process is seen. There are several borderline size left inguinal nodes favored to be reactive. There is no evidence of bowel obstruction. There are small inguinal hernias containing fat. IMPRESSION: Worsening left renal atrophy. Mild bladder wall thickening, likely reactive. Several borderline size left inguinal lymph nodes, favor reactive. Reviewed, Interpreted and Dictated by Kenny Matamoros III, MD Transcribed by Ofelia Cervantes Authenticated and [facility]
== END ==
PROVIDERS: PCP Family Medicine; Visit Provider Nurse Practitioner
DX: R10.2 Pelvic and perineal pain (principal)
CPT/HCPCS: 74177; Q9967

== ENCOUNTER 2022-12-28 09:00 | Outpatient (RCR) | payer MEDICARE, OTHER, SELFPAY ==
--- NOTE | 2022-11-02 18:14 | HMH.PTOPEV ---
PT Outpatient Evaluation Rehab PT Outpatient Evaluation Start: 11/02/22 17:02 Freq: Status: Active Protocol: Document 11/02/22 17:02 DAVE (Rec: 11/02/22 18:13 DAVE [id number]) E-signed By Ludivina Liang, PT Outpatient Therapy Subjective History Subjective History Pt is a 77 y/o male who reports insidious onset of L ankle pain at the end of April . Pt reports gradual worsening of pain overtime. Pt had a left foot xray on 04/26/22 with findings as follows: Three views of the left foot demonstrate no acute fracture or dislocation. There are mild hypertrophic changes of the 1st MTP joint. A small plantar calcaneal spur is seen . Soft tissues are without acute abnormality. Pt reports he was diagnosed with achilles tendinitis and placed in a boot for ~6 weeks which helped with pain. Pt states he attended PT 2 months ago due to the same issue and states PT treatment abolished his pain. Pt reports he was discharged about a month ago and states he was non- compliant with his HEP and had re-exacerbation of his symptoms 1 week later. Pt reports continued pain at the achilles insertion that is aggravated by end range dorsiflexion of the ankle, going up stairs and taking ~10 steps after inactivity. Pt reports after he walks ~10 steps pain/stiffness improves but returns if he performs prolonged standing or walking. Medical History: High blood pressure, Type II diabetes, L TKA ~1 year ago, Hx of AAA and open heart surgery New diagnosis of cancer in past 12 No months? Chief Complaint Pain,Stiff Symptom Type Ache,Sharp,Dull Symptoms Relieved By Rest/Positioning Symptoms Aggravated By Physical Activity,Walking Prior Functional Limitations None Current Functional Limitations Standing,Walking,Stairs Symptom Description Intermittent Level of pain today (0-10) 0 Pain scale - at its best (0-10) 0 Pain scale - at its worst (0-10) 5 Ankle/Foot Eval Gait Observation General Gait Pattern Observation Antalgic Gait Assistive Device Ambulation Assistive Device None Palpation Tenderness left Ankle/Foot Palpation Findings Tenderness Ankle/Foot Palpation Overall Comment achilles tendon insertion, calcaneus 2/4 TTP ATF TTP negative ROM Ankle/Foot Dorsiflexion w/Knee Extended 6 Active Range Motion (degrees) Ankle/Foot Dorsiflexion w/Knee Extended 10 Passive Range (degrees) Ankle/Foot Plantar Flexion Active Range 35 of Motion (degrees) Ankle/Foot Plantar Flexion Passive Range 45 of Motion (degrees) Ankle/Foot Eversion Active Range of 10 Motion (degrees) Ankle/Foot Eversion Passive Range of 15 Motion (degrees) Ankle/Foot Inversion Active Range of 14 Motion (degrees) Ankle/Foot Inversion Passive Range of 20 Motion (degrees) MMT Ankle Dorsiflexion Strength Grade 5 Normal Ankle Plantarflexion Strength Grade 4 Good Foot Eversion Strength Grade 4 Good Foot Inversion Strength Grade 4 Good Special Tests Ankle Anterior Drawer Test Negative Left Talar Tilt Test Negative Left Lower Extremity Functional Index Activities Today, do you or would you have any difficulty at all with: a.Any of your usual work, housework or Moderate difficulty school activities b. Your usual hobbies, recreational or Moderate difficulty sporting activities c. Getting into or out of the bath A little bit of difficulty d. Walking between rooms No difficulty e. Putting on your shoes or socks Moderate difficulty f. Squatting Moderate difficulty g. Lifting an object, like a bag of No difficulty groceries from the floor h. Performing light activities around No difficulty your home i. Performing heavy activities around Moderate difficulty your home j. Getting into or out of a car A little bit of difficulty k. Walking 2 blocks Moderate difficulty l. Walking a mile Extreme difficulty or unable to perform activity m. Going up or down 10 stairs (about 1 Moderate difficulty flight of stairs) n. Standing for 1 hour Quite a bit of difficulty o. Sitting for 1 hour A little bit of difficulty p. Running on even ground Extreme difficulty or unable to perform activity q. Running on uneven ground Extreme difficulty or unable to perform activity r. Making sharp turns while running fast Extreme difficulty or unable to perform activity s. Hopping Extreme difficulty or unable to perform activity t. Rolling over in bed Moderate difficulty LEFI Score Lower Extremity Functional Index Score 38 Outpatient Therapy Assessment Impairments Problems/Impairmments Palpation Tenderness,Impaired Range of Motion,Impaired Strength,Impaired Walking, Impaired Standing,Impaired Sitting,Impaired Household Care,Impaired Stair Climbing, Impaired Incline Stepping, Impaired Stepping on Uneven Surface,Impaired Recreational Activities,Subjective C/O Pain ,Impaired Self Care/Self Management Prognosis Rehab Potential Good Clinical Impression Consistent with Diagnosis Yes Short Term Goals Number of Weeks 2 Improve Self Care/Self Management Yes Patient to be Ind w/ HEP Yes Senior Care Goals Number of Weeks 4 Decreased Palpation Tenderness Yes: 0-1/4 TTP of achilles insertion Increase Range of Motion Yes: Improve L ankle AROM to WNL Increase Strength Yes: Improve L ankle MMT to 5/ 5 grossly to assist with function Increase Ability to Walk Yes Increase Ability to Stand Yes Improve Ability to Climb Stairs Yes: 1 flight with 1 HR with pain 2-3/10 or less to assist with home navigation Decrease Subjective C/O Pain Yes: Improve pain at worst to 2-3/10 to improve overall QOL Improve Self Care/Self Management Yes: Improve LEFS score to at least 58 to improve overall QOL Patient to be Ind w/ Advanced HEP Yes Outpatient Therapy Plan of Care Treatment Plan May Include Therapeutic Exercise Including Home Yes Exercise Program Manual Therapy Techniques Yes Neuromuscular Re-education Yes Therapeutic Activities to Return to Yes Previous Functional/Work Level Gait Training Yes ADL/Self Care Education Yes Dry Needling Yes Thermal Modalities Yes Electrical Stimulation Yes Ultrasound/Phonophoresis Yes Iontophoresis Yes Orthotics/Bracing/Splinting Yes Vasopneumatic Compression Pump Yes Massage Yes Group Therapy for Medicare Yes Eval/Re-Eval Yes Frequency Times per week 2 Duration Number of Weeks 4 Addendums This patient is a candidate for social No or vocational rehab? Patient/Guardian verbally acknowledges Yes understanding of treatment program and consents to further treatment? Patient/Guardian verbally acknowledges Yes understanding of diagnosis, prognosis and goals for treatment? Eval Complexity PT Charges 97435 - Moderate Complexity Shoulder/Elbow Eval Shoulder Objective Measurements Elbow Objective Measurements PHYSICIAN CERTIFICATION: I certify the specified therapy services for Emeterio Bryant are required, authorized, and reviewed every 30 days.
--- NOTE | 2022-12-01 15:06 | [facility].RHREAS ---
Rehab Reassessment Rehab OP Re-assessment Start: 11/02/22 17:02 Freq: Status: Active Protocol: Document 12/01/22 14:34 [email or web address] (Rec: 12/01/22 15:06 DAVE [id number]) E-signed By Ludivina Liang PT Lower Extremity Functional Index Activities Today, do you or would you have any difficulty at all with: a.Any of your usual work, housework or No difficulty school activities b. Your usual hobbies, recreational or Moderate difficulty sporting activities c. Getting into or out of the bath A little bit of difficulty d. Walking between rooms A little bit of difficulty e. Putting on your shoes or socks No difficulty f. Squatting A little bit of difficulty g. Lifting an object, like a bag of A little bit of difficulty groceries from the floor h. Performing light activities around A little bit of difficulty your home i. Performing heavy activities around Quite a bit of difficulty your home j. Getting into or out of a car A little bit of difficulty k. Walking 2 blocks Moderate difficulty l. Walking a mile Moderate difficulty m. Going up or down 10 stairs (about 1 Moderate difficulty flight of stairs) n. Standing for 1 hour A little bit of difficulty o. Sitting for 1 hour A little bit of difficulty p. Running on even ground Quite a bit of difficulty q. Running on uneven ground Quite a bit of difficulty r. Making sharp turns while running fast Quite a bit of difficulty s. Hopping Quite a bit of difficulty t. Rolling over in bed A little bit of difficulty LEFI Score Lower Extremity Functional Index Score 48 Rehab Re-assessment Subjective Subjective Pt reports he feels 75% improved since starting PT. Pt reports continued 5/10 pain and stiffness especially with walking after a period of inactivity. Pt also reports pain/stiffness with ascending stairs and walking on uneven ground. Pt reports he has been performing his HEP 1x/day. Objective Objective Notes 2/4 TTP of achilles insertion L ankle AROM: DF 8, PF 42, Inv 15, Ev 10 L ankle MMT: 5/5 grossly Assessment Progress Assessment Progressing as Expected Assessment Notes Pt has attended 8 PT sessions consisting of aerobic exercise , LE stretching/strengthening, and modalities with good tolerance. Pt demonstrated improved L ankle AROM, strength and LEFS score this date compared to the initial evaluation. Pt continues to report stiffness and moderate pain with activities such as walking and ascending stairs. Pt would continue to benefit from skilled PT to further improve pain, ankle AROM, balance/proprioception, and soft tissue extensibility to assist with functional activity tolerance and improve overall QOL. Patient goals met ST/2 LT/9 Goals Not Met p! severity at worst, ankle AROM, LEFS score Revised Goals n/a Plan Plan Continue initial POC, incorporate balance/ proprioception and IASTM to the calf to assist with soft tissue extensibility Frequency of Therapy 2x/week Duration of therapy 2-3 more weeks Time and Billing Re-Eval Time 10 Re-Eval Billing Units 1 PHYSICIAN CERTIFICATION: I certify the specified therapy services for Emeterio Bryant are required, authorized, and reviewed every 30 days.
== END 2022-12-28 10:00 | disposition home or self-care (01) ==
LOC: PT 09:00
PROVIDERS: PCP Family Medicine; Visit Provider Nurse Practitioner Family
DX: M76.62 Achilles tendinitis, left leg (principal); M77.32 Calcaneal spur, left foot
CPT/HCPCS: 97010; 97014; 97035; 97110; 97112; 97140; 97163; 97164; 97530; G0283